=== PATIENT | male | born 1930 | race Two or more races ===

== ENCOUNTER 2017-02-24 08:44 | Day surgery (SDC) | payer MEDICARE, OTHER ==
[~2017-02-24 08:44] MED LIST: Acetaminophen TAB* 325 MG PO PRN; Buffered Lidocaine 0.9% SYRIN* 5 ML/SYR SYRINGE INTRADERM ONE
[2017-02-24] MEDS ORDERED: Midazolam* 1 MG/ML 2 ML VIAL (2 MG) ONE (10:41)
[2017-02-24 11:34] VITALS: BP 156/56
[2017-02-24] MEDS ORDERED: Povidone Iodine 5% OPTH* 30 ML BTL ONE (13:31)
[2017-02-24] MEDS ORDERED: Flurbiprofen 0.03% OPTH.SOL* 2.5 ML BTL ONE (13:31)
[2017-02-24] MEDS ORDERED: Neomycin/Polymy/Dex OPTH.SUSP* MAXITROL 0.1% 5 ML ONE (13:31)
[2017-02-24] MEDS ORDERED: Lidocaine 1% MPF* 2 ML VIAL ONE (13:31)
[2017-02-24] MEDS ORDERED: Cyclopentolate 1% OPTH.SOL* 2 ML BTL ONE (13:31)
[2017-02-24] MEDS ORDERED: Lidocaine 2% EPI 1:200000 MPF* 20 ML VIAL ONE (13:31)
[2017-02-24] MEDS ORDERED: Phenylephrine 2.5% OPTH.SOL* 2 ML BTL ONE (13:31)
[2017-02-24] MEDS ORDERED: acetaZOLAMIDE TAB* 250 MG ONE (13:31)
[2017-02-24] MEDS ORDERED: Buffered Lidocaine 0.9% SYRIN* 5 ML/SYR SYRINGE ONE (13:31)
[2017-02-24] MEDS ORDERED: Proparacaine 0.5% OPHTH.SOL* 15 ML BTL ONE (13:31)
--- NOTE | 2017-02-24 16:10 | OP ---
DATE OF OPERATION: 02/24/2017 - [facility] DATE OF : 1930. SURGEON: David Plummer M.D. PREOPERATIVE DIAGNOSIS: Cataract right eye. POSTOPERATIVE DIAGNOSIS: Cataract right eye. OPERATIVE PROCEDURE: Phacoemulsification right eye with IOL. DESCRIPTIO OF PROCEDURE: The patient was brought to the operating room after being given 1/2% Alcaine with epinephrine drops in the preoperative area. The eye was prepped and draped in the usual sterile fashion. Sterile drape and eyelid speculum were placed. Again, topical 1/2% Alcaine with epinephrine was given. A paracentesis incision was made at the 9 o'clock position with the No.75 blade. Clear cornea incision 2.2 x 2.2-mm was created at the 12 o'clock position starting at the anterior limbus using the 2.2-mm keratome. The anterior chamber was irrigated with 0.4 mL of 1% non-preservative intracameral lidocaine and filled with DisCoVisc. A capsulorrhexis was completed using the cystotome and the Utrata forceps. Hydrodissection was performed with balanced salt solution. The lens nucleus was removed with the Phacoemulsification handpiece without incident. Cortex was removed with the irrigation-aspiration handpiece. The capsular bag was re-inflated using DisCoVisc and an [id number] implant was inserted with the shooter. The irrigation-aspiration handpiece was used to remove all residual DisCoVisc. The eye was refilled with balanced salt solution and the wound checked and found to be watertight. Topical Maxitrol drops were given. [id number]/[facility] #: [id number] [facility]
== END 2017-02-24 11:47 | disposition home or self-care (01) ==
LOC: OREAST 08:44
PROVIDERS: ATTEND Specialist
DX: H25.811 Combined forms of age-related cataract, right eye (principal); H00.025 Hordeolum internum left lower eyelid; H40.053 Ocular hypertension, bilateral; I10 Essential (primary) hypertension; E03.9 Hypothyroidism, unspecified; E78.5 Hyperlipidemia, unspecified
CPT/HCPCS: A9270-GY; J2250; V2632

== ENCOUNTER 2017-03-03 09:40 | Day surgery (SDC) | payer MEDICARE, OTHER ==
[2017-03-03] MEDS ORDERED: Midazolam* 1 MG/ML 2 ML VIAL (2 MG) ONE (11:29)
[2017-03-03 12:20] VITALS: BP 124/92
[2017-03-03] MEDS ORDERED: Phenylephrine 2.5% OPTH.SOL* 2 ML BTL ONE (14:52)
[2017-03-03] MEDS ORDERED: Neomycin/Polymy/Dex OPTH.SUSP* MAXITROL 0.1% 5 ML ONE (14:52)
[2017-03-03] MEDS ORDERED: acetaZOLAMIDE TAB* 250 MG ONE (14:52)
[2017-03-03] MEDS ORDERED: Flurbiprofen 0.03% OPTH.SOL* 2.5 ML BTL ONE (14:52)
[2017-03-03] MEDS ORDERED: Lidocaine 1% MPF* 2 ML VIAL ONE (14:52)
[2017-03-03] MEDS ORDERED: Proparacaine 0.5% OPHTH.SOL* 15 ML BTL ONE (14:52)
[2017-03-03] MEDS ORDERED: Povidone Iodine 5% OPTH* 30 ML BTL ONE (14:52)
[2017-03-03] MEDS ORDERED: Cyclopentolate 1% OPTH.SOL* 2 ML BTL ONE (14:52)
[2017-03-03] MEDS ORDERED: Lidocaine 2% EPI 1:200000 MPF* 20 ML VIAL ONE (14:52)
[2017-03-03] MEDS ORDERED: Buffered Lidocaine 0.9% SYRIN* 5 ML/SYR SYRINGE ONE (14:52)
--- NOTE | 2017-03-04 09:45 | OP ---
DATE OF OPERATION: 03/03/17 - [facility] DATE OF : [birth year] SURGEON: David Plummer M.D. PREOPERATIVE DIAGNOSIS: Cataract, left eye. POSTOPERATIVE DIAGNOSIS: Cataract, left eye. OPERATIVE PROCEDURE: Phacoemulsification, left eye with IOL. DESCRIPTION OF PROCEDURE: The patient was brought to the operating room after being given 1/2% Alcaine with epinephrine drops in the preoperative area. The eye was prepped and draped in the usual sterile fashion. Sterile drape and eyelid speculum were placed. Again, topical 1/2% Alcaine with epinephrine was given. A paracentesis incision was made at the 3 o'clock position with the No.75 blade. Clear cornea incision 2.2 x 2.2-mm was created at the 6 o'clock position starting at the anterior limbus using the 2.2-mm keratome. The anterior chamber was irrigated with 0.4 mL of 1% non-preservative intracameral lidocaine and filled with DisCoVisc. A capsulorrhexis was completed using the cystotome and the Utrata forceps. Hydrodissection was performed with balanced salt solution. The lens nucleus was removed with the Phacoemulsification handpiece without incident. Cortex was removed with the irrigation-aspiration handpiece. The capsular bag was re-inflated using DisCoVisc and an [id number] 22.5 implant was inserted with the shooter. The irrigation-aspiration handpiece was used to remove all residual DisCoVisc. The eye was refilled with balanced salt solution and the wound checked and found to be watertight. Topical Maxitrol drops were given. [id number]/[facility] #: [id number] MTDD
== END 2017-03-03 12:19 | disposition home or self-care (01) ==
LOC: OREAST 09:40
PROVIDERS: ATTEND Specialist
DX: H25.812 Combined forms of age-related cataract, left eye (principal); H40.053 Ocular hypertension, bilateral; I10 Essential (primary) hypertension; E78.4 Other hyperlipidemia; N40.0 Benign prostatic hyperplasia without lower urinary tract symptoms; I25.10 Atherosclerotic heart disease of native coronary artery without angina pectoris
CPT/HCPCS: A9270-GY; J2250; V2632

== ENCOUNTER 2017-09-10 22:28 | Emergency (ER) | payer MEDICARE, OTHER ==
[2017-09-10] MEDS ORDERED: hydrALAZINE IV* 20 MG/ML VIAL IV SLOW PU ONE (23:51)
[2017-09-11 00:41] LABS: ABS Basophils 0.1 10^3/ul (0-0.2); ABS Eosinophils 0.2 10^3/ul (0-0.6); ABS Monocytes 0.8 10^3/ul (0-0.8); ABS Neutrophils 3.4 10^3/ul (1.5-7.7); ABS Nucleated RBC 0 10^3/ul; Eosinophil % 3.3 % (0-6); Hematocrit 32 % (42-52); Lymphocyte % 31.5 % (25-47); Mean Corpuscular HGB Conc 32 g/dl (31-36); Mean Corpuscular Hemoglobin 23 pg (27-31); Mean Corpuscular Volume 73 fL (80-94); Mean Platelet Volume 8 um3 (7.4-10.4); Nucleated Red Blood Cells % 0; Platelet Count 289 10^3/ul (150-450); Red Blood Count 4.33 10^6/ul (4.0-5.4); Red Cell Distribution Width 16 % (10.5-15); White Blood Count 6.4 10^3/ul (3.5-10.8)
[2017-09-11 01:02] VITALS: BP 140/65
--- NOTE | 2017-09-11 02:00 | ED ---
Jay Soria Tecjoon, scribed for Caesar Trujillo MD on 09/10/17 at 2354 . HPI Cardiac - HPI Summary HPI Summary: This patient is a 87 year old male presenting to [facility] accompanied by male printing services coordinator with a chief complaint of high blood pressure since 3 days ago. Patient states that he take Losartan. Symptoms aggravated by nothing. Symptoms alleviated by nothing. Patient denies SOB, chest pain, headache, diarrhea, abd pain, kidney problems. Patient denies pain and any other problems at this time. - History of Current Complaint Chief Complaint: EDHypertension Stated Complaint: HIGH BLOOD PRESSURE Time Seen by Provider: 09/10/17 23:38 Hx Obtained From: Patient Onset/Duration: Started Days Ago - 3, Still Present Timing: Constant Initial Severity: Mild Current Severity: Mild Pain Intensity: 0 Pain Scale Used: 0-10 Numeric Aggravating Factor(s): Nothing Alleviating Factor(s): Nothing Associated Signs and Symptoms: Positive: Negative - SOB, chest pain, headache, diarrhea, abd pain, kidney problems. - Additional Pertinent History Primary Care Physician: [id number] - Allergy/Home Medications Allergies/Adverse Reactions: Allergies Allergy/AdvReac Type Severity Reaction Status Date / Time No Known Allergies Allergy Verified 09/10/17 22:44 PMH/Surg Hx/FS Hx/Imm Hx Previously Healthy: No Endocrine/Hematology History: Reports: Hx Thyroid Disease, Hx Anemia - slightly Denies: Hx Diabetes Cardiovascular History: Reports: Hx Angina, Hx Hypertension - ON MEDICATION Respiratory History: Denies: Hx Asthma, Hx Chronic Obstructive Pulmonary Disease (COPD) GI History: Reports: Hx Gastroesophageal Reflux Disease, Hx Gastrointestinal Bleed, Hx Hiatal Hernia, Other GI Disorders - constipation - prune juice and milk of magnesia, diverticulitis Denies: Hx Ulcer History: Reports: Other Problems/Disorders - BPH Musculoskeletal History: Reports: Hx Arthritis - knees, Hx Back Problems Sensory History: Reports: Hx Cataracts - bilat, Hx Contacts or Glasses - glasses Denies: Hx Vision Problem, Hx Deafness, Hx Hearing Aid, Hx Hearing Problem Opthamlomology History: Reports: Hx Cataracts - bilat, Hx Contacts or Glasses - glasses Denies: Hx Vision Problem Neurological History: Reports: Other Neuro Impairments/Disorders - muscle cramps - Surgical History Surgery Procedure, Year, and Place: Hernia repair 15 years ago. tonsillectomy at 9-10 years old Hx Anesthesia Reactions: No Infectious Disease History: No Infectious Disease History: Denies: Hx Clostridium Difficile, Hx Hepatitis, Hx Human Immunodeficiency Virus (HIV), Hx of Known/Suspected MRSA, Hx Shingles, Hx Tuberculosis, Hx Known/ Suspected VRE, Hx Known/Suspected VRSA, History Other Infectious Disease, Traveled Outside the [place] in Last 30 Days - Family History Known Family History: Negative: Cardiac Disease, Hypertension - Social History Lives: With Family Alcohol Use: None Hx Substance Use: No Substance Use Type: Reports: None Hx Tobacco Use: No Smoking Status (MU): Never Smoked Tobacco Have You Smoked in the Last Year: No Review of Systems Positive: Other - high blood pressure. Negative: Chest Pain Negative: Shortness Of Breath Negative: Abdominal Pain, Diarrhea Genitourinary: Negative - any kidney problems Negative: Headache All Other Systems Reviewed And Are Negative: Yes Physical Exam - Summary Physical Exam Summary: Appearance: Well appearing, no pain distress Skin: warm, dry, reflects adequate perfusion Head/face: normal Eyes: EOMI, YESY ENT: normal Neck: supple, non-tender Respiratory: CTA, breath sounds present Cardiovascular: Bradycardic, but regular, no murmurs. Abdomen: non-tender, soft Bowel: present Musculoskeletal: normal, strength/ROM intact Neuro: normal, sensory motor intact, A&Ox3 Triage Information Reviewed: Yes Vital Signs On Initial Exam: Initial Vitals Temp Pulse Resp BP Pulse Ox 97.4 F 64 16 217/63 98 09/10/17 22:39 09/10/17 22:39 09/10/17 22:39 09/10/17 22:39 09/10/17 22:39 Vital Signs Reviewed: Yes Diagnostics - Vital Signs Vital Signs Temp Pulse Resp BP Pulse Ox 09/10/17 22:39 97.4 F 64 16 217/63 98 - Laboratory Lab Results: Lab Results 09/11/17 09/11/17 Range/Units 00:00 00:00 WBC 6.4 (3.5-10.8) 10^3/ul RBC 4.33 (4.0-5.4) 10^6/ul Hgb 10.0 L (14.0-18.0) g/dl Hct 32 L (42-52) % MCV 73 L (80-94) fL MCH 23 L (27-31) pg MCHC 32 (31-36) g/dl RDW 16 H (10.5-15) % Plt Count 289 (150-450) 10^3/ul MPV 8 (7.4-10.4) um3 Neut % (Auto) 52.3 (38-83) % Lymph % (Auto) 31.5 (25-47) % [place] % (Auto) 11.7 H (1-9) % Eos % (Auto) 3.3 (0-6) % Baso % (Auto) 1.2 (0-2) % Absolute Neuts (auto) 3.4 (1.5-7.7) 10^3/ul Absolute Lymphs (auto) 2.0 (1.0-4.8) 10^3/ul Absolute Monos (auto) 0.8 (0-0.8) 10^3/ul Absolute Eos (auto) 0.2 (0-0.6) 10^3/ul Absolute Basos (auto) 0.1 (0-0.2) 10^3/ul Absolute Nucleated RBC 0 10^3/ul Nucleated RBC % 0 Sodium 132 L (133-145) mmol/L Potassium 4.5 (3.5-5.0) mmol/L Chloride 102 (101-111) mmol/L Carbon Dioxide 24 (22-32) mmol/L Anion Gap 6 (2-11) mmol/L BUN 12 (6-24) mg/dL Creatinine 0.80 (0.67-1.17) mg/dL Est GFR ( Amer) 117.1 (>60) Est GFR (Non-Af Amer) 91.0 (>60) BUN/Creatinine Ratio 15.0 (8-20) Glucose 112 H (70-100) mg/dL Calcium 9.5 (8.6-10.3) mg/dL TSH 0.42 (0.34-5.60) mcIU/mL Result Diagrams: 09/11/17 00:00 09/11/17 00:00 Lab Statement: Any lab studies that have been ordered have been reviewed, and results considered in the medical decision making process. - EKG 2348 Cardiac Rate: Bradycardia EKG Rhythm: Sinus Bradycardia - 55 BPM EKG Interpretation: Sinus bradycardia (55 BPM), Normal axis, normal ST. Re-Evaluation - Re-Evaluation First Eval Re-Evaluation Time: 00:54 Change: Improved Comment: Patient is happy and feeling better. Patient's blood pressure is 140. Disposition - Course Course Of Treatment: pt with uncontrolled htn on losartan only. BP 190s here systolic. No sx at present to include any of end-organ dysfunction. ECG, renal fxn nl. Tx with IV hydralazine with normalization of BP. - Diagnoses Provider Diagnoses: Uncontrolled hypertension, Anemia Discharge - Discharge Plan Condition: Good Disposition: HOME Prescriptions: hydrALAZINE TAB* [Apresoline TAB*] 10 mg PO QID #40 tab Patient Education Materials: Chronic Hypertension (ED) Referrals: Giorgio Serrano MD [Primary Care Provider] - Additional Instructions: You were started on a small dose of blood pressure medication. If it works well your dose will be increased. Return if worse, new symptoms or other concerns. Have your doctor check your blood pressure in the next few days and look at your mild anemia as well. The documentation as recorded by the Jay perez Tecjoon accurately reflects the service I personally performed and the decisions made by me, Caesar Trujillo MD.
== END 2017-09-11 01:09 | disposition home or self-care (01) ==
LOC: ED 22:28
DX: I10 Essential (primary) hypertension (principal); D64.9 Anemia, unspecified
CPT/HCPCS: 36415; 80048; 84443; 85025; 93005; 96374; 99282; J0360

== ENCOUNTER 2017-09-11 19:59 | Emergency (ER) | payer MEDICARE, OTHER ==
[2017-09-11 20:30] VITALS: BP 0/0
--- NOTE | 2017-09-12 05:04 | ED ---
Jay Soria Tecjoon, scribed for Caesar Trujillo MD on 09/11/17 at 2016 . HPI Cardiac - HPI Summary HPI Summary: This patient is a 87 year old male presenting to [facility] accompanied by male furnishings conservator with a chief complaint of high blood pressure since today. Patient was seen yesterday for hypertension and was given hydralazine 10mg. Patient returns for the same concern. He states he has only taken hydralazine twice today, but was still concerned about his blood pressure. He does not have any other complaints or symptoms at this time. Patient states dizziness when he takes his medication. - History of Current Complaint Chief Complaint: EDHypertension Stated Complaint: HIGH BP Time Seen by Provider: 09/11/17 20:10 Hx Obtained From: Patient Onset/Duration: Started Days Ago, Still Present Timing: Constant Current Severity: None Pain Intensity: 0 Pain Scale Used: 0-10 Numeric Aggravating Factor(s): Nothing Alleviating Factor(s): Nothing - Additional Pertinent History Primary Care Physician: [id number] - Allergy/Home Medications Allergies/Adverse Reactions: Allergies Allergy/AdvReac Type Severity Reaction Status Date / Time No Known Allergies Allergy Verified 09/10/17 22:44 PMH/Surg Hx/FS Hx/Imm Hx Previously Healthy: No Endocrine/Hematology History: Reports: Hx Thyroid Disease, Hx Anemia - slightly Denies: Hx Diabetes Cardiovascular History: Reports: Hx Angina, Hx Hypertension - ON MEDICATION Respiratory History: Denies: Hx Asthma, Hx Chronic Obstructive Pulmonary Disease (COPD) GI History: Reports: Hx Gastroesophageal Reflux Disease, Hx Gastrointestinal Bleed, Hx Hiatal Hernia, Other GI Disorders - constipation - prune juice and milk of magnesia, diverticulitis Denies: Hx Ulcer History: Reports: Other Problems/Disorders - BPH Musculoskeletal History: Reports: Hx Arthritis - knees, Hx Back Problems Sensory History: Reports: Hx Cataracts - bilat, Hx Contacts or Glasses - glasses Denies: Hx Vision Problem, Hx Deafness, Hx Hearing Aid, Hx Hearing Problem Opthamlomology History: Reports: Hx Cataracts - bilat, Hx Contacts or Glasses - glasses Denies: Hx Vision Problem Neurological History: Reports: Other Neuro Impairments/Disorders - muscle cramps - Surgical History Surgery Procedure, Year, and Place: Hernia repair 15 years ago. tonsillectomy at 9-10 years old Hx Anesthesia Reactions: No Infectious Disease History: No Infectious Disease History: Denies: Hx Clostridium Difficile, Hx Hepatitis, Hx Human Immunodeficiency Virus (HIV), Hx of Known/Suspected MRSA, Hx Shingles, Hx Tuberculosis, Hx Known/ Suspected VRE, Hx Known/Suspected VRSA, History Other Infectious Disease, Traveled Outside the [place] in Last 30 Days - Family History Known Family History: Negative: Cardiac Disease, Hypertension Family History: negative for HTN or CAD - Social History Alcohol Use: None Hx Substance Use: No Substance Use Type: Reports: None Hx Tobacco Use: No Smoking Status (MU): Never Smoked Tobacco Have You Smoked in the Last Year: No Review of Systems Negative: Fever Positive: Other - hyptertension Neurological: Negative - dizziness All Other Systems Reviewed And Are Negative: Yes Physical Exam - Summary Physical Exam Summary: Appearance: Well appearing, no pain distress Skin: warm, dry, reflects adequate perfusion Head/face: normal Eyes: EOMI, YESY ENT: normal Neck: supple, non-tender Respiratory: CTA, breath sounds present Cardiovascular: RRR, pulses symmetrical Abdomen: non-tender, soft Bowel: present Musculoskeletal: normal, strength/ROM intact Neuro: normal, sensory motor intact, A&Ox3 Triage Information Reviewed: Yes Vital Signs On Initial Exam: Initial Vitals Temp Pulse Resp BP Pulse Ox 98.0 F 70 16 166/70 100 09/11/17 20:00 09/11/17 20:00 09/11/17 20:00 09/11/17 20:00 09/11/17 20:00 Vital Signs Reviewed: Yes Diagnostics - Vital Signs Vital Signs Temp Pulse Resp BP Pulse Ox 09/11/17 20:00 98.0 F 70 16 166/70 100 - Laboratory Lab Statement: Any lab studies that have been ordered have been reviewed, and results considered in the medical decision making process. Disposition - Course Course Of Treatment: I saw this pt yesterday for same. He is very concerned about BP. We talked at length about the significance. He is following up with his PMD on Wednesday. He will take Rx Hydralazine before bed. He has no sx, especially of end-organ dysfxn. - Diagnoses Provider Diagnoses: Elevated blood pressure reading Discharge - Discharge Plan Condition: Good Disposition: HOME Patient Education Materials: Chronic Hypertension (ED) Referrals: Giorgio Serrano MD [Primary Care Provider] - Additional Instructions: See your doctor on Wednesday. Take medication before bed only. Return if worse or other concerns. The documentation as recorded by the Jay perez Tecjoon accurately reflects the service I personally performed and the decisions made by me, Caesar Trujillo MD.
== END 2017-09-11 20:29 | disposition home or self-care (01) ==
LOC: ED 19:59
DX: I10 Essential (primary) hypertension (principal)
CPT/HCPCS: 99281

== ENCOUNTER 2017-09-15 15:22 | Emergency (ER) | payer MEDICARE, OTHER ==
[2017-09-15 15:53] VITALS: BP 170/61
== END 2017-09-15 16:43 | disposition left against medical advice (07) ==
LOC: UCEAST 15:22
DX: M79.89 Other specified soft tissue disorders (principal); Z53.21 Procedure and treatment not carried out due to patient leaving prior to being seen by health care provider